=== PATIENT | male | born 1940 ===

== ENCOUNTER 2022-04-05 08:41 | Day surgery (SDC) | payer MEDICARE ==
[2022-04-04 13:05] VITALS: BMI 37.3
[~2022-04-05 08:41] MED LIST: EPINEPHrine 0.3 MG in Ophthalmic Irrigation Solution 500 ML IRR SCH; fentaNYL Citrate/PF 100 MCG/2 ML SYRINGE ONE
[2022-04-05] MEDS ORDERED: Phenylephrine 2.5% Ophth Soln 5 ML BOT ONE (09:04)
[2022-04-05] MEDS ORDERED: Cyclopentolate 1% Opth Drop 2 ML BOT ONE (09:04)
[2022-04-05] MEDS ORDERED: Maxitrol 0.1% Opth Oint 3.5 GM TUBE ONE (10:45)
[2022-04-05] MEDS ORDERED: PROPOFOL 200 MG/20 ML VIAL ONE (10:45)
[2022-04-05] MEDS ORDERED: CEFAZOLIN 1 GM VIAL ONE (10:45)
[2022-04-05] MEDS ORDERED: Bupivacaine 0.75% 10 ML VIAL ONE (10:45)
[2022-04-05] MEDS ORDERED: Lidocaine 1% PF 5 ML VIAL ONE (10:45)
[2022-04-05] MEDS ORDERED: Lidocaine 4% PF 5 ML AMP ONE (10:45)
[2022-04-05] MEDS ORDERED: Triamcinolone 40 MG/ML VIAL ONE (10:45)
[2022-04-05] MEDS ORDERED: Naloxone HCl 0.4 mg/ml Vial ONE (10:45)
== END 2022-04-05 12:20 | disposition home or self-care (01) ==
LOC: SDC 08:41
PROVIDERS: ATTEND Ophthalmology Retina Specialist
PROC: 08T43ZZ Resection of Right Vitreous, Percutaneous Approach (ICD-10-PCS; principal; 2022-04-05)
DX: H33.021 Retinal detachment with multiple breaks, right eye (principal); I10 Essential (primary) hypertension; E78.5 Hyperlipidemia, unspecified; Z79.1 Long term (current) use of non-steroidal anti-inflammatories (NSAID); Z79.82 Long term (current) use of aspirin; Z79.899 Other long term (current) drug therapy; Z88.2 Allergy status to sulfonamides; Z98.41 Cataract extraction status, right eye; Z98.42 Cataract extraction status, left eye; Z96.1 Presence of intraocular lens
CPT/HCPCS: 67025; J0171; J0690; J2310; J2704; J3301; J3490